=== PATIENT | female | born 1990 | race African-American/Black ===

== ENCOUNTER 2020-01-01 14:46 | Outpatient (CLI) | payer OTHER, SELFPAY ==
--- NOTE | ~2020-01-01 | US_ITS ---
EXAMINATION: US OB <= 14 weeks fetus EXAM DATE: 01/01/2020 15:16 INDICATION: , for dating. First trimester. TECHNIQUE: Pelvic obstetrical transabdominal sonogram was performed by a technologist. There are mu ltiple grayscale and Doppler images available for interpretation. There are no earlier studies of th is gestation for comparison. FINDINGS: Uterus measures 9.6 x 8.6 x 6.6 cm. There is intrauterine gestation sac. pole with heart rate confirmed at 154 beats per minute. The 3.6 cm crown-rump length corresponds to estimated gestational age by ultrasound of 10 weeks 4 days, estimated date of confinement 07/25/2020. Yolk sac is identified. There is no sonographic evidence of subchorionic hemorrhage. The ovaries were not identified. IMPRESSION: Early live intrauterine gestation, age by ultrasound 10 weeks 4 days. Reviewed, dictated and finalized at location A. IMPRESSION: Early live intrauterine gestation, age by ultrasound 10 weeks 4 da ys.
== END 2020-01-01 14:47 | disposition home or self-care (01) ==
PROVIDERS: Visit Provider Obstetrics & Gynecology
DX: Z34.01 Encounter for supervision of normal first pregnancy, first trimester (principal); Z3A.10 10 weeks gestation of pregnancy
CPT/HCPCS: 76801

== ENCOUNTER 2022-08-18 16:48 | Outpatient (CLI) | payer OTHER, SELFPAY ==
--- NOTE | ~2022-08-18 | XR_ITS ---
XR lumbar spine 2-3V DATE: 08/18/2022 17:28 INDICATION: Backache TECHNIQUE: AP, lateral, coned lateral lumbosacral views COMPARISON: None FINDINGS: There is minimal dextro scoliosis of the lumbar spine. No fracture or bone destruction. The lumbar pedicles are intact. Lumbar and lumbosacral interspaces are well preserved. The sacroiliac karla ints are normal. IMPRESSION: Minimal dextroscoliosis Reviewed, dictated and finalized at location A. IMPRESSION: Minimal dextroscoliosis
--- NOTE | ~2022-08-18 | XR_ITS ---
XR thoracic spine 3V DATE: 08/18/2022 17:28 INDICATION: Backache TECHNIQUE: AP, lateral, swimmer views COMPARISON: None FINDINGS: No fracture or dislocation or bone destruction. The thoracic pedicles are intact. No parasp inal soft tissue thickening. IMPRESSION: Negative Reviewed, dictated and finalized at location A. IMPRESSION: Negative
== END 2022-08-18 16:49 | disposition home or self-care (01) ==
LOC: ANHIMG 16:50
PROVIDERS: PCP Internal Medicine; Visit Provider Internal Medicine
DX: M54.9 Dorsalgia, unspecified (principal); M41.86 Other forms of scoliosis, lumbar region
CPT/HCPCS: 72072; 72100

== ENCOUNTER 2022-10-04 09:34 | Outpatient (CLI) | payer OTHER, SELFPAY ==
--- NOTE | 2022-10-04 11:00 | NEURO_ITS ---
Impression: # Complains of nocturnal paresthesia and pain in hands. # Right moderate Carpal Tunnel Syndrome. 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 # Needle/EMG exam not requested. Motor Nerve Conduction Upper Extremities Median Nerve Conduction Velocity (m/sec) Terminal Latency (msec) Response Voltage(mV) Elbow-Wrist Wrist Elbow Wrist Right 59 5.7 2 2 Left 59 3.5 5 5 Ulnar Nerve Conduction Velocity (m/sec) Terminal Latency (msec) Response Voltage(mV) Above Elbow Below Elbow Wrist Above Elbow Below Elbow Wrist Right 51 55 2.9 3 4 5 Left 59 2.3 6 6 F-Wave Latency Median (ms) Ulnar (ms) Right 29.7 28.5 Left 29.5 29.3 Sensory Nerve Conduction Upper Extremities Median Nerve Stimulation Terminal Latency (msec) Wrist/Digit Response Voltage (uV) Wrist Right 4.6/5.3 21/27 Left 3.3/3.6 5/6 Ulnar Nerve Stimulation Terminal Latency (msec) Wrist/Digit Response Voltage (uV) Wrist Right 2.7 53 Left 2.7 71 Radial Nerve Terminal Latency (msec) Response Voltage(mV) Right 2.0 25 Left 2.2 40 MTDD
== END 2022-10-04 09:35 | disposition home or self-care (01) ==
LOC: ANHNEURO 09:36
PROVIDERS: PCP Internal Medicine; Visit Provider Internal Medicine
DX: R20.0 Anesthesia of skin (principal); G56.01 Carpal tunnel syndrome, right upper limb; G56.21 Lesion of ulnar nerve, right upper limb
CPT/HCPCS: 95911

== ENCOUNTER 2022-12-04 13:21 | Outpatient (CLI) | payer OTHER, SELFPAY ==
--- NOTE | ~2022-12-04 | XR_ITS ---
XR knee LT min 4V DATE: 12/04/2022 13:44 INDICATION: Left knee pain, beneath patella. Twisting injury. TECHNIQUE: 4 views COMPARISON: None FINDINGS: There is suggestion of suprapatellar knee joint effusion. No fracture or dislocation, periosteal reaction or bone destruction. Joint spaces appear relatively p reserved. No radiopaque intra-articular loose body or chondrocalcinosis. IMPRESSION: Possible knee joint effusion Reviewed, dictated and finalized at location A. RMAN OF THE BOARD
== END 2022-12-04 13:22 | disposition home or self-care (01) ==
PROVIDERS: PCP Internal Medicine; Visit Provider Internal Medicine
DX: M25.562 Pain in left knee (principal)
CPT/HCPCS: 73564

== ENCOUNTER 2023-01-08 12:58 | Outpatient (CLI) | payer OTHER, SELFPAY ==
--- NOTE | ~2023-01-08 | XR_ITS ---
XR hand BI arthritis min 3V 01/08/2023 13:32 Indication: Rheumatoid arthritis Procedure: 4 views each hand Comparison: No prior studies for comparison. Findings: There is anatomic alignment of both hands. No fracture, subluxation or dislocation. No eros pam changes are identified. No significant joint space narrowing. There is normal mineralization. No soft tissue abnormality. No foreign bodies. Impression: 1: No significant bone or joint abnormality. No evidence of inflammatory arthropathy. Reviewed, dictated and finalized at location A. Impression: 1: No significant bone or joint abnormality. No evidence of inflammatory arthro jamil.
--- NOTE | ~2023-01-08 | XR_ITS ---
EXAM: XR foot LT standing 2V, XR foot RT standing 2V DATE: 01/08/2023 13:32 (accession [id number]), 01/08/2023 13:31 (accession [id number]) HISTORY: M05.79 - Rheumatoid arthritis new dr Anderson COMPARISON: None available. FINDINGS: Normal mineralization. No fracture or dislocation. No lytic or blastic lesion. Mild left h allux valgus. Mild bilateral Achilles enthesopathy. Mild bilateral pes planus. No erosion or perioste al change. Soft tissues within normal limits. IMPRESSION: No radiographic evidence of inflammatory arthritis. Mild left hallux valgus. Mild bilater al pes planus. Reviewed, dictated and finalized at location K. IMPRESSION: No radiographic evidence of inflammatory arthritis. Mild left hallu x valgus. Mild bilateral pes planus.
[2023-01-08 14:13] LABS: Alanine Aminotransferase 15 U/L (6-35); Albumin Level 4.6 g/dL (3.5-5.1); Alkaline Phosphatase 83 U/L (38-126); Anion Gap 8 mmol/L (8-16); Aspartate Amino Transferase 26 U/L (14-36); Bilirubin,Total 0.4 mg/dL (0.2-1.3); Blood Urea Nitrogen 11 mg/dL (7-17); CRP 6.6 mg/dL (<1.0); Calcium 9.4 mg/dL (8.4-10.2); Carbon Dioxide 31 mmol/L (22-30); Chloride 102 mmol/L (98-107); Estimated Glomerular Filt Rate > 60; Glucose 101 mg/dL (65-110); Potassium 4.1 mmol/L (3.4-5.0); Sodium 141 mmol/L (137-145)
[2023-01-08 14:21] LABS: Hematocrit 36.2 % (37.0-47.0); Hemoglobin 10.8 g/dL (12.0-15.0); Mean Corpuscular HGB Conc 29.8 g/dl (32-36); Mean Corpuscular Hemoglobin 24.2 pg (26-34); Mean Corpuscular Volume 81.2 fl (80-100); Mean Platelet Volume 9.5 fl (7.4-10.4); Platelet Count Result 492 k/mm3 (150-375); Red Blood Count 4.46 M/mm3 (4.2-5.4); White Blood Count 5.8 K/mm3 (4.5-10.0)
[2023-01-08 14:58] LABS: Appearance Urine Cloudy (Clear); Bacteria Urine Rare /hpf; Bilirubin Urine Negative (Negative); Blood Urine 1+ (Negative); Color Urine Dark Yellow (Yellow); Glucose Urine UA Negative (Negative); Hyaline Casts Urine Present /lpf; Ketones Urine Trace mg/dL (Negative); Leukocyte Esterase Ur 1+ LEU/UL (Negative); Nitrate Urine Negative (Negative); Protein Urine 1+ mg/dL (Negative); Specific Grav Ur 1.034 (1.001-1.035); Squamous Epithelial Cell Urine Few /hpf (Few)
[2023-01-08 15:00] LABS: Add Urine Microscopic? YES
[2023-01-08 15:02] LABS: Hepatitis B Surface Anti Res Positive; Hepatitis C Virus Antibody Negative (Negative)
[2023-01-08 15:10] LABS: Pregnancy On Board Control Positive; Urine Pregnancy Test Negative
[2023-01-08 15:38] LABS: Erythrocyte Sedimentation Rate 19 mm/hr (0-20)
[2023-01-11 12:54] LABS: NIL 0.02 IU/mL; Quantiferon TB Plus, 1T NEGATIVE (NEGATIVE)
== END 2023-01-08 12:59 | disposition home or self-care (01) ==
PROVIDERS: PCP Internal Medicine; Visit Provider Internal Medicine
DX: M19.90 Unspecified osteoarthritis, unspecified site (principal); Z71.89 Other specified counseling; Z79.899 Other long term (current) drug therapy; M05.79 Rheumatoid arthritis with rheumatoid factor of multiple sites without organ or systems involvement; M20.12 Hallux valgus (acquired), left foot; M21.42 Flat foot [pes planus] (acquired), left foot; M21.41 Flat foot [pes planus] (acquired), right foot
CPT/HCPCS: 36415; 73130; 73620; 80053; 81001; 81025; 85027; 85652; 86140; 86480; 86706; 86803; 87086

== ENCOUNTER 2023-03-19 12:45 | Outpatient (CLI) | payer OTHER, SELFPAY ==
[2023-03-19 13:01] LABS: Hematocrit 36.5 % (37.0-47.0); Mean Corpuscular HGB Conc 30.1 g/dl (32-36); Mean Corpuscular Hemoglobin 24.4 pg (26-34); Mean Corpuscular Volume 81.1 fl (80-100); Mean Platelet Volume 9.2 fl (7.4-10.4); Platelet Count Result 369 k/mm3 (150-375); Red Cell Distribution Width 14.7 % (11.5-14.5); White Blood Count 6.2 K/mm3 (4.5-10.0)
[2023-03-19 13:04] LABS: Appearance Urine Cloudy (Clear); Bacteria Urine None Seen /hpf; Bilirubin Urine Negative (Negative); Blood Urine 3+ (Negative); Color Urine Yellow (Yellow); Glucose Urine UA Negative (Negative); Ketones Urine Trace mg/dL (Negative); Leukocyte Esterase Ur Trace LEU/UL (Negative); Nitrate Urine Negative (Negative); Non Pathogenic Casts 0-2; Protein Urine 1+ mg/dL (Negative); RBC Urine >100 /hpf (0-2); Specific Grav Ur 1.024 (1.001-1.035); Squamous Epithelial Cell Urine Few /hpf (Few); WBC Urine 0-5 /hpf; pH Urine 5.5 (5.0-9.0)
[2023-03-19 13:12] LABS: Add Urine Microscopic? YES
[2023-03-19 13:12] LABS: Alanine Aminotransferase 12 U/L (6-35); Albumin Level 4.2 g/dL (3.5-5.1); Alkaline Phosphatase 65 U/L (38-126); Anion Gap 8 mmol/L (8-16); Aspartate Amino Transferase 25 U/L (14-36); Bilirubin,Total 0.4 mg/dL (0.2-1.3); Blood Urea Nitrogen 9 mg/dL (7-17); CRP 4.8 mg/dL (<1.0); Calcium 8.9 mg/dL (8.4-10.2); Carbon Dioxide 27 mmol/L (22-30); Chloride 104 mmol/L (98-107); Estimated Glomerular Filt Rate > 60; Glucose 95 mg/dL (65-110); Potassium 4.1 mmol/L (3.4-5.0); Sodium 139 mmol/L (137-145)
[2023-03-19 13:59] LABS: Erythrocyte Sedimentation Rate 62 mm/hr (0-20)
== END 2023-03-19 12:46 | disposition home or self-care (01) ==
LOC: ANHLAB 12:47
PROVIDERS: PCP Internal Medicine; Visit Provider Internal Medicine
DX: M19.90 Unspecified osteoarthritis, unspecified site (principal); M05.79 Rheumatoid arthritis with rheumatoid factor of multiple sites without organ or systems involvement
CPT/HCPCS: 36415; 80053; 81001; 85027; 85652; 86140